=== PATIENT | female | born 1985 | race American Indian/Alaskan Native ===

== ENCOUNTER 2017-06-02 10:25 | Emergency (ER) | payer BC ==
[2017-06-02 12:20] LABS: Anion Gap 16 mmol/L; Blood Urea Nitrogen 9 mg/dL (7-17); Calcium 8.8 mg/dL (8.4-10.2); Carbon Dioxide 24 mmol/L (22-30); Chloride 103.5 mmol/L (98-107); Creatine Kinase 99 units/L (30-135); Glucose 107 mg/dL (65-100); Potassium 4.5 mmol/L (3.6-5.0); Sodium 139 mmol/L (137-145)
[2017-06-02 12:21] LABS: Hematocrit 39.6 % (30.3-42.9); Hemoglobin 12.9 gm/dl (10.1-14.3); Mean Corpuscular HGB Conc 33 % (30-34); Mean Corpuscular Hemoglobin 29 pg (28-32); Mean Corpuscular Volume 89 fl (79-97); Platelet Count 330 K/mm3 (140-440); Red Blood Count 4.43 M/mm3 (3.65-5.03); Red Cell Distribution Width 14.9 % (13.2-15.2); White Blood Count 12.5 K/mm3 (4.5-11.0)
[2017-06-02 12:41] LABS: Urine Drugs of Abuse Note Disclamer
--- NOTE | 2017-06-02 12:49 | Emergency Department Report ---
ED General Adult HPI - General Chief complaint: Dizziness Stated complaint: WEAKNESS/DIZZINESS Time Seen by Provider: 06/02/17 11:32 Source: patient, EMS (ems notes not available at time of chart dictation), RN notes reviewed Mode of arrival: Stretcher Limitations: No Limitations - History of Present Illness Initial comments: This is a 31-year-old female, the patient is previously unknown to this provider. Patient came to the hospital today after feeling dizzy and weak after starting new physical fitness routine. Patient reports that she followed up with outpatient primary care doctor prior to initiating outpatient physical fitness exercise routine, and was cleared medically to start physical fitness. The patient is accompanied by her physical nurse midwife/clinical instructor who indicates the exercise room was very hot and overheated, and that the ventilation was "not very good." Patient indicates no symptoms currently, but reports lightheadedness, generalized weakness, almost passing out after starting the workout, which was quite vigorous as per the patient and her bilingual trainer, and included calisthenics, lifting, and vigorous aerobic activity. No leg pain or leg swelling, no recent surgeries, no history of DVT, does not take control tablets. -: Gradual Consistency: now resolved Improves with: rest Worsens with: other (exercise) Associated Symptoms: denies other symptoms - Related Data Allergies Allergy/AdvReac Type Severity Reaction Status Date / Time No Known Allergies Allergy Verified 06/02/17 10:54 ED Review of Systems ROS: Stated complaint: WEAKNESS/DIZZINESS Other details as noted in HPI Constitutional: denies: fever, malaise Eyes: denies: eye discharge ENT: denies: epistaxis Respiratory: denies: cough Cardiovascular: denies: chest pain, syncope Gastrointestinal: denies: abdominal pain Genitourinary: denies: urgency Musculoskeletal: denies: arthralgia Skin: denies: lesions Neurological: denies: headache Psychiatric: denies: anxiety ED Past Medical Hx - Past Medical History Previous Medical History?: No - Surgical History Past Surgical History?: No - Social History Smoking Status: Never Smoker Substance Use Type: None ED Physical Exam - General Limitations: No Limitations General appearance: alert, in no apparent distress - Head Head exam: Present: atraumatic, normocephalic - Eye Eye exam: Present: normal appearance, PERRL, EOMI, other (visual acuity intact to finger counting, color perception, reading at a close distance). Absent: nystagmus - ENT ENT exam: Present: normal exam, normal orophraynx, mucous membranes moist, normal external ear exam - Neck Neck exam: Present: normal inspection, full ROM. Absent: tenderness, meningismus - Respiratory Respiratory exam: Present: normal lung sounds bilaterally. Absent: respiratory distress, wheezes, rales, rhonchi, stridor, chest wall tenderness, accessory muscle use, decreased breath sounds, prolonged expiratory - Cardiovascular Cardiovascular Exam: Present: regular rate, normal rhythm, normal heart sounds. Absent: bradycardia, tachycardia, irregular rhythm, systolic murmur, diastolic murmur, rubs, gallop - GI/Abdominal GI/Abdominal exam: Present: soft, normal bowel sounds. Absent: distended, tenderness, guarding, rebound, rigid, pulsatile mass - Extremities Exam Extremities exam: Present: normal inspection, full ROM, normal capillary refill , calf tenderness. Absent: joint swelling - Back Exam Back exam: Present: normal inspection, full ROM. Absent: tenderness, CVA tenderness (R), CVA tenderness (L), muscle spasm, paraspinal tenderness, vertebral tenderness - Neurological Exam Neurological exam: Present: alert, oriented X3, normal gait, other (Extraocular movements intact. Tongue midline. No facial droop. Facial sensation intact to light touch in the V1, V2, V3 distribution bilaterally. 5 and 5 strength in 4 extremities.. Sensation is intact to light touch in 4 extremities.). Absent : motor sensory deficit - Psychiatric Psychiatric exam: Present: normal affect, normal mood - Skin Skin exam: Present: warm, dry, intact, normal color. Absent: rash ED Course Vital Signs 06/02/17 06/02/17 06/02/17 10:55 11:02 11:16 Temperature 98.7 F Pulse Rate 81 80 77 Pulse Rate [ Lying] Pulse Rate [ Sitting] Pulse Rate [ Standing] Respiratory 14 16 16 Rate Blood Pressure 145/71 119/77 119/77 Blood Pressure [Lying] Blood Pressure [Right] Blood Pressure [Sitting] Blood Pressure [Standing] O2 Sat by Pulse 98 96 96 Oximetry 06/02/17 06/02/17 06/02/17 11:30 11:46 12:07 Temperature Pulse Rate 78 80 Pulse Rate [ Lying] Pulse Rate [ Sitting] Pulse Rate [ Standing] Respiratory 15 22 Rate Blood Pressure 125/67 125/67 124/76 Blood Pressure [Lying] Blood Pressure [Right] Blood Pressure [Sitting] Blood Pressure [Standing] O2 Sat by Pulse 98 99 99 Oximetry 06/02/17 06/02/17 06/02/17 12:14 12:16 12:30 Temperature Pulse Rate 80 88 Pulse Rate [ 80 Lying] Pulse Rate [ 88 Sitting] Pulse Rate [ 89 Standing] Respiratory 12 14 Rate Blood Pressure 130/71 124/76 Blood Pressure 113/66 [Lying] Blood Pressure [Right] Blood Pressure 114/75 [Sitting] Blood Pressure 124/76 [Standing] O2 Sat by Pulse 99 97 Oximetry 06/02/17 14:12 Temperature Pulse Rate 86 Pulse Rate [ Lying] Pulse Rate [ Sitting] Pulse Rate [ Standing] Respiratory 18 Rate Blood Pressure Blood Pressure [Lying] Blood Pressure 132/86 [Right] Blood Pressure [Sitting] Blood Pressure [Standing] O2 Sat by Pulse Oximetry ED Medical Decision Making - Lab Data Result diagrams: 06/02/17 11:42 06/02/17 11:42 Vital Signs 06/02/17 06/02/17 06/02/17 10:55 11:02 11:16 Temperature 98.7 F Pulse Rate 81 80 77 Pulse Rate [ Lying] Pulse Rate [ Sitting] Pulse Rate [ Standing] Respiratory 14 16 16 Rate Blood Pressure 145/71 119/77 119/77 Blood Pressure [Lying] Blood Pressure [Right] Blood Pressure [Sitting] Blood Pressure [Standing] O2 Sat by Pulse 98 96 96 Oximetry 06/02/17 06/02/17 06/02/17 11:30 11:46 12:07 Temperature Pulse Rate 78 80 Pulse Rate [ Lying] Pulse Rate [ Sitting] Pulse Rate [ Standing] Respiratory 15 22 Rate Blood Pressure 125/67 125/67 124/76 Blood Pressure [Lying] Blood Pressure [Right] Blood Pressure [Sitting] Blood Pressure [Standing] O2 Sat by Pulse 98 99 99 Oximetry 06/02/17 06/02/17 06/02/17 12:14 12:16 12:30 Temperature Pulse Rate 80 88 Pulse Rate [ 80 Lying] Pulse Rate [ 88 Sitting] Pulse Rate [ 89 Standing] Respiratory 12 14 Rate Blood Pressure 130/71 124/76 Blood Pressure 113/66 [Lying] Blood Pressure [Right] Blood Pressure 114/75 [Sitting] Blood Pressure 124/76 [Standing] O2 Sat by Pulse 99 97 Oximetry 06/02/17 14:12 Temperature Pulse Rate 86 Pulse Rate [ Lying] Pulse Rate [ Sitting] Pulse Rate [ Standing] Respiratory 18 Rate Blood Pressure Blood Pressure [Lying] Blood Pressure 132/86 [Right] Blood Pressure [Sitting] Blood Pressure [Standing] O2 Sat by Pulse Oximetry Lab Results 06/02/17 06/02/17 06/02/17 Range/Units 11:42 11:42 11:42 WBC 12.5 H (4.5-11.0) K/mm3 RBC 4.43 (3.65-5.03) M/mm3 Hgb 12.9 (10.1-14.3) gm/dl Hct 39.6 (30.3-42.9) % MCV 89 (79-97) fl MCH 29 (28-32) pg MCHC 33 (30-34) % RDW 14.9 (13.2-15.2) % Plt Count 330 (140-440) K/mm3 Sodium 139 (137-145) mmol/L Potassium 4.5 (3.6-5.0) mmol/L Chloride 103.5 (98-107) mmol/L Carbon Dioxide 24 (22-30) mmol/L Anion Gap 16 mmol/L BUN 9 (7-17) mg/dL Creatinine 0.5 L (0.7-1.2) mg/dL Estimated GFR > 60 ml/min BUN/Creatinine Ratio 18.00 % Glucose 107 H (65-100) mg/dL Calcium 8.8 (8.4-10.2) mg/dL Magnesium 2.20 (1.7-2.3) mg/dL Total Creatine Kinase 99 (30-135) units/L HCG, Quant < 2 (0-4) mIU/mL Urine Color (Yellow) Urine Turbidity (Clear) Urine pH (5.0-7.0) Ur Specific [place] (1.003-1.030) Urine Protein (Negative) mg/dL Urine Glucose (UA) (Negative) mg/dL Urine Ketones (Negative) mg/dL Urine Blood (Negative) Urine Nitrite (Negative) Urine Bilirubin (Negative) Urine Urobilinogen (<2.0) mg/dL Ur Leukocyte Esterase (Negative) Urine WBC (Auto) (0.0-6.0) /HPF Urine RBC (Auto) (0.0-6.0) /HPF U Epithel Cells (Auto) (0-13.0) /HPF Urine Bacteria (Auto) (Negative) /HPF Urine Mucus /HPF Urine Opiates Screen Urine Methadone Screen Ur Barbiturates Screen Ur Phencyclidine Scrn Ur Amphetamines Screen U Benzodiazepines Scrn Urine Cocaine Screen U Marijuana (THC) Screen Drugs of Abuse Note 06/02/17 06/02/17 Range/Units 12:14 12:14 WBC (4.5-11.0) K/mm3 RBC (3.65-5.03) M/mm3 Hgb (10.1-14.3) gm/dl Hct (30.3-42.9) % MCV (79-97) fl MCH (28-32) pg MCHC (30-34) % RDW (13.2-15.2) % Plt Count (140-440) K/mm3 Sodium (137-145) mmol/L Potassium (3.6-5.0) mmol/L Chloride (98-107) mmol/L Carbon Dioxide (22-30) mmol/L Anion Gap mmol/L BUN (7-17) mg/dL Creatinine (0.7-1.2) mg/dL Estimated GFR ml/min BUN/Creatinine Ratio % Glucose (65-100) mg/dL Calcium (8.4-10.2) mg/dL Magnesium (1.7-2.3) mg/dL Total Creatine Kinase (30-135) units/L HCG, Quant (0-4) mIU/mL Urine Color Yellow (Yellow) Urine Turbidity Clear (Clear) Urine pH 6.0 (5.0-7.0) Ur Specific [place] 1.017 (1.003-1.030) Urine Protein 30 mg/dl (Negative) mg/dL Urine Glucose (UA) Neg (Negative) mg/dL Urine Ketones Neg (Negative) mg/dL Urine Blood Lg (Negative) Urine Nitrite Neg (Negative) Urine Bilirubin Neg (Negative) Urine Urobilinogen < 2.0 (<2.0) mg/dL Ur Leukocyte Esterase Tr (Negative) Urine WBC (Auto) 4.0 (0.0-6.0) /HPF Urine RBC (Auto) > 182.0 (0.0-6.0) /HPF U Epithel Cells (Auto) 1.0 (0-13.0) /HPF Urine Bacteria (Auto) 1+ (Negative) /HPF Urine Mucus 2+ /HPF Urine Opiates Screen Presumptive negative Urine Methadone Screen Presumptive negative Ur Barbiturates Screen Presumptive negative Ur Phencyclidine Scrn Presumptive negative Ur Amphetamines Screen Presumptive negative U Benzodiazepines Scrn Presumptive negative Urine Cocaine Screen Presumptive negative U Marijuana (THC) Screen Presumptive negative Drugs of Abuse Note Disclamer - EKG Data 06/02/17 14:43 Sinus, 83 bpm, normal axis, normal intervals, not morphologically consistent with STEMI. - Medical Decision Making Differential diagnosis: Orthostasis, vagal event, exercise induced near syncope, general medical evaluation Assessment and plan: 31-year-old female with resolved dizziness and generalized weakness after starting her first episode of heavy physical activity. She is afebrile, with reassuring vital signs, walks with a steady gait, is clinically sober, has a GCS of 15, with an NIH score of 0, low risk by well's criteria, no pulmonary embolus or DVT risk factors, perc negative. Observed in the ER for a prolonged period of time without hemodynamic or clinical accommodation. He does not appear to be any emergent condition at this time, patient will be discharged at this time, she is instructed to engage in physical activity as tolerated. Return precautions are reviewed. Critical care attestation.: If time is entered above; I have spent that time in minutes in the direct care of this critically ill patient, excluding procedure time. ED Disposition Clinical Impression: General medical exam Disposition: [id number] TO HOME OR SELFCARE Is pt being admited?: No Does the pt Need Aspirin: No Condition: Stable Instructions: Near Syncope (ED) Additional Instructions: Follow-up with the primary care doctor within the next 2 weeks. Physical activity as tolerated. Return to the ER right away with fevers, chills, lethargy, irritability, projectile vomiting, change in mental status, inability to tolerate liquid feeds. Certain to drink plenty of fluids prior to engaging in physical activity, and make certain to not overexert herself during gym and physical activity. Make certain that any physical fitness endeavors are well ventilated, not overheated, and have appropriate air-conditioning and ventilation. Referrals: PRIMARY CARE, [Primary Care Provider] - 3-5 Days MARIO CHAVEZ MD [Staff Physician] - 3-5 Days [facility] [Provider Group] - 3-5 Days
[2017-06-02 12:57] LABS: Bacteria,Urine 1+ /HPF (Negative); Bilirubin,Urine NEG (Negative); Blood,Urine LG (Negative); Ketones,Urine NEG (Negative); Leukocyte Esterase,Urine TR (Negative); Mucus,Urine 2+ /HPF; Nitrite,Urine NEG (Negative); Urobilinogen,Urine < 2.0 mg/dL (<2.0)
[2017-06-02 13:01] LABS: RBC,Urine > 182.0 /HPF (0.0-6.0)
[2017-06-02 14:14] VITALS: BP 132/86
== END 2017-06-02 15:11 | disposition home or self-care (01) ==
LOC: ED 10:25
DX: R42 Dizziness and giddiness (principal); R53.1 Weakness
CPT/HCPCS: 36415; 80048; 80307; 81001; 82550; 83735; 84702; 85027; 93005; 93010